=== PATIENT | male | born 1950 | race Caucasian/White ===

== ENCOUNTER → 2016-06-16 | Outpatient (REF) | payer MEDICARE, BC ==
[2016-06-17 14:13] LABS: PSA TOTAL 3.9 ng/mL (0.0-4.0)
== END ==
LOC: M LABDRAW1 11:18
PROVIDERS: ATTEND Urology
DX: R97.20 Elevated prostate specific antigen [PSA] (principal)

== ENCOUNTER → 2016-07-13 | Outpatient (REF) | payer MEDICARE, BC ==
[2016-07-13 12:28] LABS: BASO % 0.6 % (0.0-1.0); EOS # 0.2 K/mm3 (0.0-0.50); EOS % 3.5 % (0.0-3.0); LYMPH # 1.1 K/mm3 (1.5-4.5); LYMPH % 23.6 % (24.0-44.0); MEAN CORPUSCULAR HEMOGLOBIN 30.1 pg (27.0-33.0); MEAN CORPUSCULAR HGB CONC 34.1 g/dl (32.0-36.5); MEAN CORPUSCULAR VOLUME 88.3 fl (80.0-96.0); MONO # 0.3 K/mm3 (0.0-0.8); MONO % 6.3 % (0.0-5.0); NEUTROPHILS % 64.2 % (36.0-66.0); RED CELL DISTRIBUTION WIDTH 12.8 % (11.5-14.5); WHITE BLOOD COUNT 4.6 K/mm3 (4.0-10.0)
[2016-07-13 12:31] LABS: ALBUMIN 3.9 GM/DL (3.2-5.2); ALBUMIN/GLOBULIN RATIO 1.44 (1.00-1.93); ALKALINE PHOSPHATASE 71 U/L (45-117); ALT/SGPT 32 U/L (12-78); ANION GAP 8 MEQ/L (8-16); AST/SGOT 15 U/L (15-37); BILIRUBIN,TOTAL 0.5 MG/DL (0.2-1.0); BLOOD UREA NITROGEN 17 MG/DL (7-18); CALCIUM LEVEL 8.7 MG/DL (8.8-10.2); CARBON DIOXIDE LEVEL 29 MEQ/L (21-32); CHLORIDE LEVEL 103 MEQ/L (98-107); CHOLESTEROL LEVEL 193 MG/DL (<200); CREATININE FOR GFR 0.78 MG/DL (0.70-1.30); GLOMERULAR FILTRATION RATE > 60.0 (>49); GLUCOSE, FASTING 83 MG/DL (80-110); POTASSIUM SERUM 4.6 MEQ/L (3.5-5.1); SODIUM LEVEL 140 MEQ/L (136-145); TOTAL PROTEIN 6.6 GM/DL (6.4-8.2); TRIGLYCERIDES LEVEL 97 MG/DL (<150)
== END ==
LOC: M LABDRAW1 11:25
PROVIDERS: ATTEND Family Medicine
DX: J30.9 Allergic rhinitis, unspecified (principal); J45.909 Unspecified asthma, uncomplicated; J32.9 Chronic sinusitis, unspecified; K21.9 Gastro-esophageal reflux disease without esophagitis; J45.31 Mild persistent asthma with (acute) exacerbation; Z79.899 Other long term (current) drug therapy

== ENCOUNTER → 2016-09-09 | Outpatient (CLI) | payer MEDICARE, BC ==
[~2016-09-09] VITALS: Ht 167.6 cm; Wt 79.4 kg
[~2016-09-09] MED LIST: ALBU17IN INH; ASPI1TAB PO; AZEL0.1S3; FISH1000 PO; LIDOCAINE 2% INJ 100 MG/5 ML SDV (FOR ANES.) As Ordered ONE; NS 1,000 ML IV ONE; OMEP40CA2 PO; PROPOFOL 200 MG/20 ML VIAL As Ordered ONE; QNAS80AE; QVAR1AER2 IN; SILD25TA PO; SING10TA32 PO; VITA200016 PO; fentaNYL 100 MCG/2 ML INJECTION (J3010) As Ordered ONE
--- NOTE | 2016-09-09 13:39 | ROOR ---
Patient Name: Solo Worley Procedure Date: 09/09/2016 1:27 PM Date of : 1950 Age: 66 Room: [facility] Gender: Male Note Status: Finalized Procedure: Upper GI endoscopy Indications: Sore throat Providers: Lamin Vincent Jr, MD Referring MD: Nissa Andrade DO Requesting Provider: Medicines: Propofol per Anesthesia Complications: No immediate complications. Procedure: Pre-Anesthesia Assessment: - Prior to the procedure, a History and Physical was performed, and patient medications and allergies were reviewed. The patient is competent. The risks and benefits of the procedure and the sedation options and risks were discussed with the patient. All questions were answered and informed consent was obtained. Patient identification and proposed procedure were verified by the physician and the nurse in the pre-procedure area and in the procedure room. Mental Status Examination: alert and oriented. Airway Examination: normal oropharyngeal airway and neck mobility. Respiratory Examination: clear to auscultation. CV Examination: normal. ASA Grade Assessment: II - A patient with mild systemic disease. After reviewing the risks and benefits, the patient was deemed in satisfactory condition to undergo the procedure. The anesthesia plan was to use moderate sedation / analgesia (conscious sedation). Immediately prior to administration of medications, the patient was re-assessed for adequacy to receive sedatives. The heart rate, respiratory rate, oxygen saturations, blood pressure, adequacy of pulmonary ventilation, and response to care were monitored throughout the procedure. The physical status of the patient was re-assessed after the procedure. The Endoscope was introduced through the mouth, and advanced to the second part of duodenum. The upper GI endoscopy was accomplished without difficulty. The patient tolerated the procedure well. Findings: The upper third of the esophagus, middle third of the esophagus and lower third of the esophagus were normal. The cardia, gastric fundus, gastric body, gastric antrum, prepyloric region of the stomach and pylorus were normal. The duodenal bulb, first portion of the duodenum and second portion of the duodenum were normal. Impression: - Normal upper third of esophagus, middle third of esophagus and lower third of esophagus. - Normal cardia, gastric fundus, gastric body, antrum, prepyloric region of the stomach and pylorus. - Normal duodenal bulb, first portion of the duodenum and second portion of the duodenum. - No specimens collected. Recommendation: - Discharge patient to home (ambulatory). - Return to primary care physician as previously scheduled. Lamin Vincent MD Lamin Vincent Jr, MD 09/09/2016 1:38:50 PM This report has been signed electronically. Number of Addenda: 0 Note Initiated On: 09/09/2016 1:27 PM Estimated Blood Loss: Estimated blood loss: none.
--- NOTE | 2016-09-09 13:50 | ROOR ---
Patient Name: Solo Worley Procedure Date: 09/09/2016 1:28 PM Date of : 1950 Age: 66 Room: [facility] Gender: Male Note Status: Finalized Procedure: Colonoscopy Indications: Screening for colorectal malignant neoplasm Providers: Lmain Vincent Jr, MD Referring MD: Nissa Andrade DO Requesting Provider: Medicines: Propofol per Anesthesia Complications: No immediate complications. Procedure: Pre-Anesthesia Assessment: - Prior to the procedure, a History and Physical was performed, and patient medications and allergies were reviewed. The patient is competent. The risks and benefits of the procedure and the sedation options and risks were discussed with the patient. All questions were answered and informed consent was obtained. Patient identification and proposed procedure were verified by the physician and the nurse in the pre-procedure area and in the procedure room. Mental Status Examination: alert and oriented. Airway Examination: normal oropharyngeal airway and neck mobility. Respiratory Examination: clear to auscultation. CV Examination: normal. ASA Grade Assessment: II - A patient with mild systemic disease. After reviewing the risks and benefits, the patient was deemed in satisfactory condition to undergo the procedure. The anesthesia plan was to use moderate sedation / analgesia (conscious sedation). Immediately prior to administration of medications, the patient was re-assessed for adequacy to receive sedatives. The heart rate, respiratory rate, oxygen saturations, blood pressure, adequacy of pulmonary ventilation, and response to care were monitored throughout the procedure. The physical status of the patient was re-assessed after the procedure. The Colonoscope was introduced through the anus and advanced to the cecum, identified by appendiceal orifice and ileocecal valve. The colonoscopy was performed without difficulty. The patient tolerated the procedure well. The quality of the bowel preparation was adequate and good. Findings: The perianal and digital rectal examinations were normal. Pertinent negatives include normal sphincter tone, no palpable rectal lesions and no anal lesion or abnormality was detected. The rectum, recto-sigmoid colon, sigmoid colon, descending colon, transverse colon, ascending colon, cecum, appendiceal orifice and ileocecal valve appeared normal. Impression: - The rectum, recto-sigmoid colon, sigmoid colon, descending colon, transverse colon, ascending colon, cecum, appendiceal orifice and ileocecal valve are normal. - No specimens collected. Recommendation: - Discharge patient to home (ambulatory). - Repeat colonoscopy in 10 years for screening purposes. Lamin Vincent MD Lamin Vincent Jr, MD 09/09/2016 1:49:57 PM This report has been signed electronically. Number of Addenda: 0 Note Initiated On: 09/09/2016 1:28 PM Estimated Blood Loss: Estimated blood loss: none.
[2016-09-09 14:15] VITALS: BP 126/74
== END | disposition home or self-care (01) ==
LOC: M OPP 11:31
PROVIDERS: ATTEND Surgery
DX: Z12.11 Encounter for screening for malignant neoplasm of colon (principal); R07.0 Pain in throat; R49.8 Other voice and resonance disorders; M19.90 Unspecified osteoarthritis, unspecified site; I10 Essential (primary) hypertension; J44.9 Chronic obstructive pulmonary disease, unspecified; K21.9 Gastro-esophageal reflux disease without esophagitis; J45.909 Unspecified asthma, uncomplicated; R06.83 Snoring; N52.9 Male erectile dysfunction, unspecified; H90.8 Mixed conductive and sensorineural hearing loss, unspecified; J33.1 Polypoid sinus degeneration; J31.0 Chronic rhinitis; R35.1 Nocturia; Z87.891 Personal history of nicotine dependence; Z88.8 Allergy status to other drugs, medicaments and biological substances; Z79.82 Long term (current) use of aspirin; Z79.899 Other long term (current) drug therapy; Z80.42 Family history of malignant neoplasm of prostate
CPT/HCPCS: 43235; G0121; J3010

== ENCOUNTER → 2017-07-07 | Outpatient (REF) | payer MEDICARE, BC ==
[2017-07-07 14:10] LABS: BASO # 0.1 10^3/uL (0.0-0.2); BASO % 1.2 % (0.0-1.0); EOS # 0.3 10^3/uL (0.0-0.50); EOS % 5.2 % (0.0-3.0); HEMATOCRIT 43.5 % (42.0-52.0); HEMOGLOBIN 14.6 g/dl (13.5-17.5); IMMATURE GRANULOCYTE % 0.4 % (0-3.0); LYMPH # 1.2 10^3/uL (1.5-4.5); LYMPH % 24.2 % (24.0-44.0); MEAN CORPUSCULAR HGB CONC 33.6 g/dl (32.0-36.5); MEAN CORPUSCULAR VOLUME 86.5 fl (80.0-96.0); MONO # 0.3 10^3/uL (0.0-0.8); MONO % 6.8 % (0.0-5.0); NEUTROPHILS # 3.1 10^3/uL (1.8-7.7); NEUTROPHILS % 62.2 % (36.0-66.0); PLATELET COUNT, AUTOMATED 275 10^3/uL (150-450); RED BLOOD COUNT 5.03 10^6/uL (4.30-6.10); RED CELL DISTRIBUTION WIDTH 12.7 % (11.5-14.5)
[2017-07-07 14:22] LABS: ALBUMIN/GLOBULIN RATIO 1.54 (1.00-1.93); ALKALINE PHOSPHATASE 62 U/L (45-117); ALT/SGPT 35 U/L (12-78); ANION GAP 5 MEQ/L (8-16); AST/SGOT 22 U/L (7-37); BLOOD UREA NITROGEN 21 MG/DL (7-18); CALCIUM LEVEL 8.9 MG/DL (8.8-10.2); CARBON DIOXIDE LEVEL 29 MEQ/L (21-32); CHLORIDE LEVEL 106 MEQ/L (98-107); CHOLESTEROL LEVEL 175 MG/DL (<200); CHOLESTEROL RISK RATIO 3.431 (<5); CREATININE FOR GFR 0.78 MG/DL (0.70-1.30); GLOMERULAR FILTRATION RATE > 60.0 (>49); GLUCOSE, FASTING 86 MG/DL (70-100); HDL CHOLESTEROL 51 MG/DL (>40); NON-HDL-C 124 MG/DL; POTASSIUM SERUM 4.7 MEQ/L (3.5-5.1); SODIUM LEVEL 140 MEQ/L (136-145); TOTAL PROTEIN 6.6 GM/DL (6.4-8.2); TRIGLYCERIDES LEVEL 55 MG/DL (<150); URIC ACID 6.4 MG/DL (3.5-7.2)
== END ==
LOC: M LABDRAW1 11:33
DX: R94.31 Abnormal electrocardiogram [ECG] [EKG] (principal); J30.9 Allergic rhinitis, unspecified; I10 Essential (primary) hypertension; R06.09 Other forms of dyspnea; J45.31 Mild persistent asthma with (acute) exacerbation; Z82.41 Family history of sudden cardiac death; Z87.891 Personal history of nicotine dependence; Z87.898 Personal history of other specified conditions
CPT/HCPCS: 84550

== ENCOUNTER → 2017-07-07 | Outpatient (REF) | payer MEDICARE, BC ==
[2017-07-07 14:18] LABS: PROSTATIC SPECIFIC AG MONITOR 4.69 NG/ML (< 4.0)
== END ==
LOC: M LABDRAW1 13:17
DX: Z87.898 Personal history of other specified conditions (principal)

== ENCOUNTER → 2017-10-26 | Outpatient (CLI) | payer MEDICARE, BC ==
[2017-11-09 00:06] LABS: PSA FREE 1.17 ng/mL; PSA TOTAL 4.5 ng/mL (0.0-4.0)
== END ==
LOC: M SMT 11:59
DX: R97.20 Elevated prostate specific antigen [PSA] (principal)
CPT/HCPCS: 84154

== ENCOUNTER → 2018-07-07 | Outpatient (CLI) | payer MEDICARE, BC ==
[~2018-07-07] MED LIST changes: -ASPI1TAB PO; +ASPI81TA26 PO; -LIDOCAINE 2% INJ 100 MG/5 ML SDV (FOR ANES.) As Ordered ONE; -NS 1,000 ML IV ONE; -PROPOFOL 200 MG/20 ML VIAL As Ordered ONE; -QVAR1AER2 IN; +QVAR80AE10 IN; -fentaNYL 100 MCG/2 ML INJECTION (J3010) As Ordered ONE
[2018-07-08 14:30] LABS: PSA % FREE 29.8 % (.); PSA FREE 1.34 ng/mL; PSA TOTAL 4.5 ng/mL (0.0-4.0)
== END ==
LOC: M SMT 09:31
PROVIDERS: ATTEND Urology
DX: R97.20 Elevated prostate specific antigen [PSA] (principal)

== ENCOUNTER → 2018-07-26 | Outpatient (CLI) | payer MEDICARE, BC ==
[2018-07-26 13:37] LABS: BASO # 0.1 10^3/uL (0.0-0.2); EOS # 0.2 10^3/uL (0.0-0.50); HEMATOCRIT 49.3 % (42.0-52.0); HEMOGLOBIN 16.2 g/dl (13.5-17.5); LYMPH # 1.1 10^3/uL (1.5-4.5); LYMPH % 18.7 % (24.0-44.0); MEAN CORPUSCULAR HEMOGLOBIN 29.3 pg (27.0-33.0); MEAN CORPUSCULAR HGB CONC 32.9 g/dl (32.0-36.5); MEAN CORPUSCULAR VOLUME 89.2 fl (80.0-96.0); MONO # 0.5 10^3/uL (0.0-0.8); MONO % 8.3 % (0.0-5.0); NEUTROPHILS # 4.2 10^3/uL (1.8-7.7); NEUTROPHILS % 68.7 % (36.0-66.0); PLATELET COUNT, AUTOMATED 231 10^3/uL (150-450); RED BLOOD COUNT 5.53 10^6/uL (4.30-6.10)
[2018-07-26 13:47] LABS: ALBUMIN 3.7 GM/DL (3.2-5.2); ALT/SGPT 33 U/L (12-78); BILIRUBIN,TOTAL 0.5 MG/DL (0.2-1.0); BLOOD UREA NITROGEN 20 MG/DL (7-18); CALCIUM LEVEL 8.6 MG/DL (8.8-10.2); CARBON DIOXIDE LEVEL 31 MEQ/L (21-32); CHLORIDE LEVEL 107 MEQ/L (98-107); CHOLESTEROL LEVEL 127 MG/DL (<200); CREATININE FOR GFR 0.88 MG/DL (0.70-1.30); GLOMERULAR FILTRATION RATE > 60.0 (>49); GLUCOSE, FASTING 88 MG/DL (70-100); HDL CHOLESTEROL 46 MG/DL (>40); LDL CHOLESTEROL 69 MG/DL (<100); NON-HDL-C 81 MG/DL; POTASSIUM SERUM 4.8 MEQ/L (3.5-5.1); SODIUM LEVEL 143 MEQ/L (136-145); TOTAL PROTEIN 6.4 GM/DL (6.4-8.2); TRIGLYCERIDES LEVEL 60 MG/DL (<150); URIC ACID 5.8 MG/DL (3.5-7.2)
== END ==
LOC: M SMT 08:52
PROVIDERS: ATTEND Family Medicine
DX: Z00.00 Encounter for general adult medical examination without abnormal findings (principal); J45.909 Unspecified asthma, uncomplicated; I10 Essential (primary) hypertension; K21.9 Gastro-esophageal reflux disease without esophagitis; E78.49 Other hyperlipidemia

== ENCOUNTER → 2018-10-27 | Outpatient (CLI) | payer MEDICARE, BC ==
[2018-10-29 00:10] LABS: PSA % FREE 22.4 % (.); PSA FREE 1.32 ng/mL; PSA TOTAL 5.9 ng/mL (0.0-4.0)
== END ==
LOC: M SMT 11:03
PROVIDERS: ATTEND Urology
DX: R97.20 Elevated prostate specific antigen [PSA] (principal)

== ENCOUNTER → 2018-12-05 | Outpatient (CLI) | payer MEDICARE, BC ==
[~2018-12-05] MED LIST changes: -OMEP40CA2 PO; +OMEP40CA97 PO
--- NOTE | 2018-12-05 16:22 | REP ---
Prostate sonography: History: Elevated PSA Sonographic findings: Trans rectal prostate sonography demonstrates unremarkable seminal vesicles. Prostate gland is heterogeneously enlarged with calcifications and cystic changes noted. Glandular dimensions are measured at 4.1 x 3.5 x 5.1 cm with a calculated glandular volume of 38.5 ml. There is a 1.8 cm hypoechoic area to the left of midline in the base. There is a 1.3 cm hypoechoic area anteriorly in the left base. There is a 1.5 cm hypoechoic area to the right of midline in the mid prostate. Transrectal sonographic guidance is provided to Dr. Lopez who performed trans rectal ultrasound guided needle biopsy procedure . Electronically Signed by Ray Sousa MD 12/05/2018 04:14 P
== END ==
LOC: M SMT PRO 10:38
PROVIDERS: ATTEND Urology
DX: C61 Malignant neoplasm of prostate (principal)
CPT/HCPCS: 55700; 76872; 76942; 88342; G0416

== ENCOUNTER → 2019-07-19 | Outpatient (CLI) | payer MEDICARE, BC | LOC: M PLALAB 10:32 | DX: C61 Malignant neoplasm of prostate (principal) ==

== ENCOUNTER → 2019-11-06 | Outpatient (CLI) | payer MEDICARE, BC | LOC: M PLALAB 11:23 | PROVIDERS: ATTEND Urology | DX: C61 Malignant neoplasm of prostate (principal) ==

== ENCOUNTER → 2020-07-16 | Outpatient (CLI) | payer MEDICARE, BC ==
[2020-07-16 13:30] LABS: BASO % 0.7 % (0.0-1.0); EOS # 0.3 10^3/uL (0.0-0.5); EOS % 4.1 % (0.0-3.0); HEMATOCRIT 47.4 % (42.0-52.0); HEMOGLOBIN 15.7 g/dl (13.5-17.5); LYMPH # 1.2 10^3/uL (1.5-5.0); LYMPH % 20.2 % (24.0-44.0); MEAN CORPUSCULAR HEMOGLOBIN 29.3 pg (27.0-33.0); MEAN CORPUSCULAR HGB CONC 33.1 g/dl (32.0-36.5); MEAN CORPUSCULAR VOLUME 88.6 fl (80.0-96.0); MONO # 0.5 10^3/uL (0.0-0.8); MONO % 7.5 % (2.0-8.0); NEUTROPHILS # 4.1 10^3/uL (1.5-8.5); NEUTROPHILS % 67.2 % (36.0-66.0); PLATELET COUNT, AUTOMATED 233 10^3/uL (150-450); RED BLOOD COUNT 5.35 10^6/uL (4.30-6.10); WHITE BLOOD COUNT 6.1 10^3/uL (4.0-10.0)
[2020-07-16 13:54] LABS: ALBUMIN 3.8 GM/DL (3.2-5.2); ALT/SGPT 28 U/L (12-78); BILIRUBIN,TOTAL 0.7 MG/DL (0.2-1.0); BLOOD UREA NITROGEN 22 MG/DL (7-18); CALCIUM LEVEL 9.6 MG/DL (8.8-10.2); CARBON DIOXIDE LEVEL 30 MEQ/L (21-32); CHLORIDE LEVEL 107 MEQ/L (98-107); CHOLESTEROL LEVEL 136 MG/DL (<200); CHOLESTEROL RISK RATIO 2.428 (<5); CREATININE FOR GFR 0.84 MG/DL (0.70-1.30); GLOMERULAR FILTRATION RATE > 60.0 (>42); GLUCOSE, FASTING 95 MG/DL (70-100); HDL CHOLESTEROL 56 MG/DL (>40); LDL CHOLESTEROL 68 MG/DL (<100); NON-HDL-C 80 MG/DL; POTASSIUM SERUM 4.7 MEQ/L (3.5-5.1); SODIUM LEVEL 141 MEQ/L (136-145); TOTAL PROTEIN 6.4 GM/DL (6.4-8.2); TRIGLYCERIDES LEVEL 59 MG/DL (<150)
== END ==
LOC: M PLALAB 09:35
PROVIDERS: ATTEND Family Medicine
DX: Z00.00 Encounter for general adult medical examination without abnormal findings (principal); J45.909 Unspecified asthma, uncomplicated; K21.9 Gastro-esophageal reflux disease without esophagitis; I10 Essential (primary) hypertension; E78.49 Other hyperlipidemia

== ENCOUNTER → 2020-09-17 | Outpatient (CLI) | payer MEDICARE, BC ==
[~2020-09-17] MED LIST changes: +OMEP40CA4 PO; -OMEP40CA97 PO
== END ==
LOC: M PLALAB 09:58
PROVIDERS: ATTEND Urology
DX: C61 Malignant neoplasm of prostate (principal)

== ENCOUNTER → 2020-11-24 | Outpatient (CLI) | payer MEDICARE, BC | LOC: M PLALAB 12:39 | PROVIDERS: ATTEND Urology | DX: C61 Malignant neoplasm of prostate (principal) ==

== ENCOUNTER → 2020-12-18 | Outpatient (CLI) | payer MEDICARE, BC | LOC: M LABSMTC 10:42 | PROVIDERS: ATTEND Internal Medicine Cardiovascular Disease | DX: Z01.812 Encounter for preprocedural laboratory examination (principal); Z20.822 Contact with and (suspected) exposure to COVID-19; R07.9 Chest pain, unspecified ==

== ENCOUNTER → 2021-07-01 | Outpatient (CLI) | payer MEDICARE, BC | LOC: M PLALAB 10:24 | PROVIDERS: ATTEND Urology | DX: C61 Malignant neoplasm of prostate (principal) ==

== ENCOUNTER → 2021-07-14 | Outpatient (CLI) | payer MEDICARE, BC | LOC: M RAD 15:15 | PROVIDERS: ATTEND Nurse Practitioner Family | DX: R42 Dizziness and giddiness (principal) ==

== ENCOUNTER → 2022-07-07 | Outpatient (CLI) | payer MEDICARE, BC ==
[~2022-07-07] MED LIST changes: +MONT-5 PO; -SING10TA32 PO
== END ==
LOC: M PLALAB 10:44
PROVIDERS: ATTEND Urology
DX: C61 Malignant neoplasm of prostate (principal)

== ENCOUNTER → 2022-08-12 | Outpatient (CLI) | payer MEDICARE, BC | LOC: M PLALAB 12:08 | DX: C61 Malignant neoplasm of prostate (principal) ==

== ENCOUNTER → 2022-11-26 | Outpatient (CLI) | payer MEDICARE, BC | LOC: M PLALAB 10:08 | PROVIDERS: ATTEND Urology | DX: C61 Malignant neoplasm of prostate (principal) ==

== ENCOUNTER → 2023-07-13 | Outpatient (CLI) | payer MEDICARE, BC ==
[2023-07-13 11:34] LABS: BASO # 0.1 10^3/uL (0.0-0.2); BASO % 1.2 % (0.0-1.0); EOS # 0.3 10^3/uL (0.0-0.5); EOS % 5.2 % (0.0-3.0); HEMATOCRIT 48.5 % (42.0-52.0); HEMOGLOBIN 16.2 g/dl (13.5-17.5); LYMPH # 1.6 10^3/uL (1.5-5.0); LYMPH % 27.3 % (24.0-44.0); MEAN CORPUSCULAR HEMOGLOBIN 29.3 pg (27.0-33.0); MEAN CORPUSCULAR HGB CONC 33.4 g/dl (32.0-36.5); MEAN CORPUSCULAR VOLUME 87.7 fl (80.0-96.0); MONO # 0.5 10^3/uL (0.0-0.8); NEUTROPHILS # 3.5 10^3/uL (1.5-8.5); PLATELET COUNT, AUTOMATED 267 10^3/uL (150-450); RED BLOOD COUNT 5.53 10^6/uL (4.30-6.10)
[2023-07-13 11:48] LABS: HEMOGLOBIN A1c 5.1 % (4.0-6.0)
[2023-07-13 11:52] LABS: ALBUMIN 3.7 G/DL (3.2-5.2); ALKALINE PHOSPHATASE 89 U/L (46-116); ALT/SGPT 26 U/L (7.0-40); AST/SGOT 16 U/L (<34); BILIRUBIN,TOTAL 0.8 MG/DL (0.3-1.2); BLOOD UREA NITROGEN 23 MG/DL (9-23); CALCIUM LEVEL 9.2 MG/DL (8.3-10.6); CARBON DIOXIDE LEVEL 29 MMOL/L (20-31); CHLORIDE LEVEL 107 MMOL/L (98-107); CHOLESTEROL LEVEL 123 MG/DL (<200); CHOLESTEROL RISK RATIO 2.77 (<5); CREATININE FOR GFR 0.91 MG/DL (0.70-1.30); GLOMERULAR FILTRATION RATE > 60.0 (>42); GLUCOSE, FASTING 81 MG/DL (74-106); HDL CHOLESTEROL 44.4 MG/DL (>40); LDL CHOLESTEROL 61.2 MG/DL (<100); NON-HDL-C 78.6 MG/DL; POTASSIUM SERUM 5.1 MMOL/L (3.5-5.1); SODIUM LEVEL 141 MMOL/L (136-145); TOTAL PROTEIN 6.2 G/DL (5.7-8.2); TRIGLYCERIDES LEVEL 87 MG/DL (<150)
== END ==
LOC: M PLALAB 08:42
PROVIDERS: ATTEND Family Medicine
DX: R94.31 Abnormal electrocardiogram [ECG] [EKG] (principal); E78.00 Pure hypercholesterolemia, unspecified; R97.20 Elevated prostate specific antigen [PSA]; C61 Malignant neoplasm of prostate; Z79.899 Other long term (current) drug therapy

== ENCOUNTER → 2023-07-13 | Outpatient (CLI) | payer MEDICARE, BC | LOC: M PLALAB 08:46 | PROVIDERS: ATTEND Urology | DX: C61 Malignant neoplasm of prostate (principal) ==

== ENCOUNTER → 2023-10-26 | Outpatient (CLI) | payer MEDICARE, BC | LOC: M PLALAB 11:43 | PROVIDERS: ATTEND Urology | DX: C61 Malignant neoplasm of prostate (principal) ==

== ENCOUNTER 2023-12-05 07:02 | Day surgery (SDC) | payer MEDICARE, BC ==
[~2023-12-05] VITALS: Ht 170.2 cm; Wt 85.6 kg
[~2023-12-05 07:02] MED LIST changes: +ADV250INH INH; +ATOR1TAB19 PO; +CVS500CA5 PO; +FLOM0.4C39 PO; +GLUC1CAP10 PO; +LISI20TA33 PO; +LORA-753 PO; +MOME50SP2; +MONT10TA97 PO; +PROA1AER2 INH; +RA M500C PO; +RA T500C2 PO; +THERTAB52 PO; +VIAG100T PO; +VITA100093 PO
[2023-12-05] MEDS ORDERED: BACITRACIN OINTMENT 30GM TUBE As Ordered ONE (09:59)
[2023-12-05] MEDS: SODIUM BICARBONATE 8.4% INJ 50MEQ 50ML VIAL XX ONE (10:00)
[2023-12-05] MEDS: LIDOCAINE W/EPINEPHRINE 1% 20ML VIAL XX ONE (10:00)
[2023-12-05 11:20] VITALS: BP 162/70; TEMP 97.2; O2SAT 100
== END 2023-12-05 11:30 | disposition home or self-care (01) ==
LOC: M SDC 07:02
PROVIDERS: ATTEND Orthopaedic Surgery Hand Surgery
DX: M65.341 Trigger finger, right ring finger (principal)

== ENCOUNTER → 2024-02-09 | Outpatient (CLI) | payer MEDICARE, BC ==
[~2024-02-09] MED LIST changes: -ADV250INH INH; +ADVA1AER9 INH
== END ==
LOC: M PLALAB 11:11
PROVIDERS: ATTEND Urology
DX: C61 Malignant neoplasm of prostate (principal)

== ENCOUNTER → 2024-03-07 | Outpatient (CLI) | payer MEDICARE, BC ==
[~2024-03-07] MED LIST changes: +PROHANCE 279.3MG/ML 15ML VIAL As Ordered ONE; +PROHANCE 279.3MG/ML 5ML VIAL As Ordered ONE
== END ==
LOC: M RAD 07:33
PROVIDERS: ATTEND Urology
DX: R97.20 Elevated prostate specific antigen [PSA] (principal)
CPT/HCPCS: 72197; A9576

== ENCOUNTER → 2024-05-22 | Outpatient (CLI) | payer MEDICARE, BC ==
[~2024-05-22] MED LIST changes: +AMOX875T2 PO; +IBUP1TAB6 PO; -PROHANCE 279.3MG/ML 15ML VIAL As Ordered ONE; -PROHANCE 279.3MG/ML 5ML VIAL As Ordered ONE; +TAMS1CAP17 PO
== END ==
LOC: M EKG 11:34
PROVIDERS: ATTEND Urology
DX: Z01.818 Encounter for other preprocedural examination (principal); R97.20 Elevated prostate specific antigen [PSA]

== ENCOUNTER → 2024-05-22 | Outpatient (CLI) | payer MEDICARE, BC ==
[~2024-05-22] MED LIST changes: -AMOX875T2 PO; -IBUP1TAB6 PO; -TAMS1CAP17 PO
[2024-05-22 14:09] LABS: HEMATOCRIT 46.4 % (42.0-52.0); HEMOGLOBIN 15.9 g/dl (13.5-17.5); MEAN CORPUSCULAR HEMOGLOBIN 29.8 pg (27.0-33.0); MEAN CORPUSCULAR HGB CONC 34.3 g/dl (32.0-36.5); MEAN CORPUSCULAR VOLUME 86.9 fl (80.0-96.0); PLATELET COUNT, AUTOMATED 265 10^3/uL (150-450); RED BLOOD COUNT 5.34 10^6/uL (4.30-6.10); WHITE BLOOD COUNT 5.3 10^3/uL (4.0-10.0)
[2024-05-22 14:12] LABS: BLOOD UREA NITROGEN 15 MG/DL (9-23); CALCIUM LEVEL 9.3 MG/DL (8.3-10.6); CARBON DIOXIDE LEVEL 31 MMOL/L (20-31); CHLORIDE LEVEL 100 MMOL/L (98-107); CREATININE FOR GFR 0.91 MG/DL (0.70-1.30); GLOMERULAR FILTRATION RATE > 60.0 (>42); GLUCOSE, FASTING 86 MG/DL (74-106); POTASSIUM SERUM 4.8 MMOL/L (3.5-5.1); SODIUM LEVEL 136 MMOL/L (136-145)
== END ==
LOC: M PLAIMG 10:46
PROVIDERS: ATTEND Urology
DX: R97.20 Elevated prostate specific antigen [PSA] (principal)

== ENCOUNTER 2024-06-20 10:21 | Day surgery (SDC) | payer MEDICARE, BC ==
[~2024-06-20] VITALS: Ht 167.6 cm; Wt 83.5 kg
[~2024-06-20 10:21] MED LIST changes: +AMOX875T2 PO; -FLOM0.4C39 PO; +IBUP1TAB6 PO; +LIDOCAINE 2% 100MG/5ML SDV (FOR ANES.) As Ordered ONE; +LR 1,000 ML IV SCH; +ONDANSETRON 4MG 2ML VIAL As Ordered ONE; +TAMS-18 PO; +TAMS1CAP17 PO; +oxyCODONE 5MG TAB PO ONE; +propofoL 200 MG/20 ML VIAL As Ordered ONE; +traMADol 50 MG TAB PO ONE
[2024-06-20] MEDS ORDERED: LR 1,000 ML IV SCH (10:35)
[2024-06-20] MEDS ORDERED: fentaNYL 100 MCG/2 ML INJECTION As Ordered ONE (12:18)
[2024-06-20] MEDS ORDERED: MIDAZOLAM INJ 2MG/2ML VIAL As Ordered ONE (12:25)
[2024-06-20 14:50] VITALS: BP 171/75; TEMP 96.8; O2SAT 97
== END 2024-06-20 14:59 | disposition home or self-care (01) ==
LOC: M SDC 10:21
PROVIDERS: ATTEND Urology
DX: C61 Malignant neoplasm of prostate (principal); R35.1 Nocturia; I10 Essential (primary) hypertension; E78.00 Pure hypercholesterolemia, unspecified; J45.909 Unspecified asthma, uncomplicated; K21.9 Gastro-esophageal reflux disease without esophagitis; Z79.899 Other long term (current) drug therapy; Z88.8 Allergy status to other drugs, medicaments and biological substances; Z87.891 Personal history of nicotine dependence
CPT/HCPCS: 55700; G0416; J1100; J2250; J2405; J3010

== ENCOUNTER → 2024-12-03 | Outpatient (CLI) | payer MEDICARE, BC ==
[~2024-12-03] MED LIST changes: +CIPR-249 PO; +COLA100C5 PO; +ESOM40CA35 PO; -IBUP1TAB6 PO; -LIDOCAINE 2% 100MG/5ML SDV (FOR ANES.) As Ordered ONE; -LR 1,000 ML IV SCH; -ONDANSETRON 4MG 2ML VIAL As Ordered ONE; +PERCOCET PO; -RA T500C2 PO; +SFHIBU600 PO; +TURM500C10 PO; -oxyCODONE 5MG TAB PO ONE; -propofoL 200 MG/20 ML VIAL As Ordered ONE; -traMADol 50 MG TAB PO ONE
== END ==
LOC: M PLALAB 12:15
PROVIDERS: ATTEND Urology
DX: C61 Malignant neoplasm of prostate (principal)

== ENCOUNTER → 2024-12-25 | Outpatient (REF) | payer MEDICARE, BC ==
[~2024-12-25] MED LIST changes: +AMLO1TAB24 PO; +VENTAER INH
== END ==
LOC: M SMT 12:52
PROVIDERS: ATTEND Urology
DX: Z01.818 Encounter for other preprocedural examination (principal); N39.3 Stress incontinence (female) (male); C61 Malignant neoplasm of prostate; Z90.79 Acquired absence of other genital organ(s); Z80.42 Family history of malignant neoplasm of prostate

== ENCOUNTER → 2024-12-25 | Outpatient (CLI) | payer MEDICARE, BC ==
[~2024-12-25] MED LIST changes: -AMLO1TAB24 PO; -VENTAER INH
[2024-12-25 15:27] LABS: PLATELET COUNT, AUTOMATED 292 10^3/uL (150-450)
[2024-12-25 15:33] LABS: CALCIUM LEVEL 9.2 MG/DL (8.3-10.6); CARBON DIOXIDE LEVEL 32.0 MMOL/L (20-31); CHLORIDE LEVEL 99.0 MMOL/L (98-107); CREATININE FOR GFR 0.89 MG/DL (0.70-1.30); GLOMERULAR FILTRATION RATE 88.8 (>42); POTASSIUM SERUM 5.0 MMOL/L (3.5-5.1); SODIUM LEVEL 136.0 MMOL/L (136-145)
== END ==
LOC: M PLALAB 11:54
PROVIDERS: ATTEND Urology
DX: Z01.818 Encounter for other preprocedural examination (principal); N39.3 Stress incontinence (female) (male); N39.0 Urinary tract infection, site not specified

== ENCOUNTER 2025-01-02 05:48 | Day surgery (SDC) | payer MEDICARE, BC ==
[~2025-01-02] VITALS: Ht 167.6 cm; Wt 85.7 kg
[~2025-01-02 05:48] MED LIST changes: +AMLO1TAB24 PO; +VENTAER INH
[2025-01-02] MEDS ORDERED: ONDANSETRON 4MG/2ML VIAL As Ordered ONE (06:52)
[2025-01-02] MEDS ORDERED: LIDOCAINE 2% 100 MG/5 ML SDV (FOR ANES.) As Ordered ONE (06:52)
[2025-01-02] MEDS ORDERED: dexAMETHasone 4 MG/ML 1 ML VIAL As Ordered ONE (06:52)
[2025-01-02] MEDS ORDERED: MIDAZOLAM INJ 2 MG/2 ML VIAL As Ordered ONE (06:55)
[2025-01-02] MEDS: LR 1,000 ML IV SCH (07:15)
[2025-01-02] MEDS: ceFAZolin SOD 2 GM IV ONCE IV ONE (07:33)
[2025-01-02] MEDS ORDERED: ACETAMINOPHEN 1000MG/100ML IV BAG As Ordered ONE (07:35)
[2025-01-02] MEDS: LIDOCAINE 2% 5 ML JELLY UROJET As Ordered ONE (07:39)
[2025-01-02 08:31] VITALS: BP 151/76; TEMP 96.8; O2SAT 98
== END 2025-01-02 08:39 | disposition home or self-care (01) ==
LOC: M SDC 05:48
PROVIDERS: ATTEND Urology
DX: N39.3 Stress incontinence (female) (male) (principal); C61 Malignant neoplasm of prostate; I10 Essential (primary) hypertension; J45.909 Unspecified asthma, uncomplicated; E78.00 Pure hypercholesterolemia, unspecified; Z90.79 Acquired absence of other genital organ(s); K21.9 Gastro-esophageal reflux disease without esophagitis; Z79.899 Other long term (current) drug therapy; Z79.82 Long term (current) use of aspirin; Z88.8 Allergy status to other drugs, medicaments and biological substances; Z87.891 Personal history of nicotine dependence
CPT/HCPCS: 51715; A4215; J0131; J0688; J1100; J2250; J2405; J3010; L8606